=== PATIENT | male | born 1985 ===

== ENCOUNTER 2018-04-23 13:28 | Emergency (ER) | payer OTHER ==
[2018-04-23 13:46] VITALS: BP 133/87; PULSE 90; RESP 16; TEMP 98.8; O2SAT 98
--- NOTE | 2018-04-23 14:57 | C.PDOC ---
Time Seen by Provider: 04/23/18 13:48 Chief Complaint (Nursing): Lower Extremity Problem/Injury Past Medical History Vital Signs: Last Vital Signs Temp 98.8 F 04/23/18 13:44 Pulse 90 04/23/18 13:44 Resp 16 04/23/18 13:44 BP 133/87 04/23/18 13:44 Pulse Ox 98 04/23/18 13:44 - Social History Hx Alcohol Use: No Hx Substance Use: No - Immunization History Hx Tetanus Toxoid Vaccination: No Hx Influenza Vaccination: No Hx Pneumococcal Vaccination: No ED Course And Treatment O2 Sat by Pulse Oximetry: 98 Medical Decision Making Medical Decision Making: R forearm strain/sprain worse w persistent heat/massage/Fabien Cash ice/NSAIDS educated and f/u through work-referred services advised no imaging indicated at this time. Disposition Doctor Will See Patient In The: Office Counseled Patient/Family Regarding: Studies Performed, Diagnosis - Disposition Disposition: HOME/ ROUTINE Disposition Time: 14:56 Condition: GOOD - Clinical Impression Clinical Impression: Strain of forearm, right
--- NOTE | 2018-04-23 15:00 | C.PDOC ---
History Of Present Illness 33 y/o male presents to the ED for evaluation of knee pain. Patient was at work today and while moving a marble slab, he twisted his right knee. He reports having pain in the knee since, and developed some swelling. Otherwise he denies any numbness, weakness, paresthesias, or open wounds. Time Seen by Provider: 04/23/18 13:48 Chief Complaint (Nursing): Lower Extremity Problem/Injury History Per: Patient History/Exam Limitations: no limitations Onset/Duration Of Symptoms: Hrs Current Symptoms Are (Timing): Still Present Past Medical History Reviewed: Historical Data, Nursing Documentation, Vital Signs Vital Signs: Last Vital Signs Temp 98.8 F 04/23/18 13:44 Pulse 90 04/23/18 13:44 Resp 16 04/23/18 13:44 BP 133/87 04/23/18 13:44 Pulse Ox 98 04/23/18 13:44 - Medical History PMH: No Chronic Diseases Family History: States: No Known Family Hx - Social History Hx Alcohol Use: No Hx Substance Use: No - Immunization History Hx Tetanus Toxoid Vaccination: No Hx Influenza Vaccination: No Hx Pneumococcal Vaccination: No Review Of Systems Constitutional: Negative for: Fever, Chills, Weakness Cardiovascular: Negative for: Chest Pain Respiratory: Negative for: Cough, Shortness of Breath Musculoskeletal: Positive for: Leg Pain (knee pain) Skin: Negative for: Rash, Lesions Neurological: Negative for: Weakness, Numbness, Dizziness Physical Exam - Physical Exam Appears: Well, Non-toxic, No Acute Distress Skin: Normal Color, Warm, No Rash Head: Atraumatic, Normacephalic Eye(s): bilateral: Normal Inspection (no scleral icterus) Neck: Normal ROM Chest: Symmetrical Respiratory: No Accessory Muscle Use, Other (Normal inspiratory effort) Extremity: Normal ROM, No Deformity, Swelling (bulging noted directly over the patella, no other swelling), Other (No joint laxity, patient able to bear weight on the right) Pulses: Left Dorsalis Pedis: Normal, Right Dorsalis Pedis: Normal Neurological/Psych: Oriented x3, Normal Cranial Nerves Gait: Steady ED Course And Treatment O2 Sat by Pulse Oximetry: 98 (RA) Pulse Ox Interpretation: Normal Medical Decision Making Medical Decision Making: Initial Plan: - Right Knee x-ray EVELIA bandage applied. Patient is stable for discharge home. Disposition Counseled Patient/Family Regarding: Studies Performed, Diagnosis, Need For Followup - Disposition Referrals: [facility] [Outside] Disposition: HOME/ ROUTINE Disposition Time: 14:59 Condition: STABLE Instructions: Prepatellar Bursitis Forms: Gen Discharge Inst Setswana, [facility] (Setswana), Work Excuse Print Language: AMERICAN - Clinical Impression Clinical Impression: Bursitis of right knee, Right knee sprain - PA / [employer] / Resident Statement MD/DO has reviewed & agrees with the documentation as recorded. - Scribe Statement The provider has reviewed the documentation as recorded by the Myeshaibgerald Juarez All medical record entries made by the Hiram were at my direction and personally dictated by me. I have reviewed the chart and agree that the record accurately reflects my personal performance of the history, physical exam, medical decision making, and the department course for this patient. I have also personally directed, reviewed, and agree with the discharge instructions and disposition.
== END 2018-04-23 15:04 | disposition home or self-care (01) ==
LOC: C.ER 13:28
DX: S83.91XA Sprain of unspecified site of right knee, initial encounter (principal); X50.1XXA Overexertion from prolonged static or awkward postures, initial encounter; Y99.0 Civilian activity done for income or pay